=== PATIENT | male | born 1975 | race Two or more races ===

== ENCOUNTER 2023-12-08 18:28 | Emergency (ER) | payer MEDICAID ==
[~2023-12-08] VITALS: Ht 188 cm; Wt 159.6 kg
[2023-12-08] MEDS: LIDOCAINE W/ EPINEPHRINE 1.5 % INJ 5ML AMP IJ ONE (22:35)
[2023-12-08] MEDS ORDERED: MUPI2OIN2 TOP (23:26)
[2023-12-08 23:33] VITALS: BP 133/76; PULSE 78; RESP 20; TEMP 98.4; O2SAT 96
[2023-12-08] MEDS: TETANUS-DIPTH-ACEL PERTUSSIS 0.5ML SYR Tdap IM ONE (23:54)
== END 2023-12-09 00:01 | disposition home or self-care (01) ==
LOC: ER 18:28
DX: S61.512A Laceration without foreign body of left wrist, initial encounter (principal); Z88.0 Allergy status to penicillin; Z88.6 Allergy status to analgesic agent; W26.8XXA Contact with other sharp object(s), not elsewhere classified, initial encounter; Y93.89 Activity, other specified; Y92.89 Other specified places as the place of occurrence of the external cause; Y99.8 Other external cause status
CPT/HCPCS: 12002; 90471; 90715